=== PATIENT | male | born 1975 | race Caucasian/White ===

== ENCOUNTER 2022-10-14 10:00 | Emergency (ER) | payer OTHER, SELFPAY ==
--- NOTE | ~2022-10-14 | CT_ITS ---
EXAMINATION: CT FACIAL BONES WITH CONTRAST CLINICAL INFORMATION: Bilateral high swelling. Rule out orbital cellulitis COMPARISON: None available. TECHNIQUE: Axial images through the facial bones following 85 mL Omnipaque 350 IV contrast. Sagittal and coronal reconstructions on the technologist workstation. This CT examination was performed using dose optimization techniques as appropriate, variously including the following: *Automated exposure control *Adjustment of mA and/or kV according to patient size (this includes techniques or standardized protocols for targeted exams where dose is matched to indication/reason for exam; i.e. extremities or head) *Use of iterative reconstruction technique DLP: 739 mGy-cm FINDINGS: There is preseptal soft tissue swelling over both orbits. Post septal soft tissues are normal. Visualized intracranial structures are normal. There is a small polyp or cyst in the right maxillary sinus. Paranasal sinuses, mastoid air cells and middle ears are otherwise clear. The nasal septum is deviated to the left. The temporomandibular joints are normal. There is fatty replacement of both parotid glands. No enlarged lymph nodes. The oropharynx and larynx are normal. There is asymmetric appearance of the area of glottic folds with low-attenuation cystic appearing soft tissue seen in the right aryepiglottic fold. Appearance is questionable for possible polyp or cyst versus secretions. Clinical correlation recommended. There are degenerative changes of the spine. CT/CT facial bones w IV con IMPRESSION: Bilateral orbital preseptal soft tissue swelling. Post septal orbital soft tissues are normal. Asymmetric appearance with low-attenuation cystic appearing area in the right aryepiglottic fold. Possible polyp or cyst versus secretions should be considered. Clinical correlation recommended.
[2022-10-14 10:05] VITALS: BP 186/111; PULSE 79; RESP 20; O2SAT 98; BMI 57.3
--- NOTE | 2022-10-14 12:47 | ED.ALLEREA ---
HPI - Allergic Reaction General Chief complaint: Allergic Reaction Stated complaint: upper facial swelling Time Seen by Provider: 10/14/22 11:18 Source: patient Mode of arrival: ambulatory Limitations: no limitations History of Present Illness HPI narrative: 47-year-old male history of obesity ( morbid) presents to the ED today with upper facial and periorbital swelling bilaterally upon waking up 24 hours ago. Reports feeling at baseline the night prior. Yesterday he woke up with his eyes swollen shut, with upper facial swelling. Denies pain with eye movement or vision changes. Additionally states that there has been a slimy discharge coming from his penis & scrotum and reports concern that he touched this discharge prior to rubbing his eyes he wasnt sure if it was sweat or discharge. Reports penile pruritus. Denies headache, rash, hives, difficulty swallowing or breathing, fever, chills, nausea, vomiting, abdominal pain, dysuria, hematuria. Denies new detergents or lotions. No known insect bites. States that his only allergies to naproxen and Tylenol. MD complaint: facial swelling Related Data Previous Rx's Medication Instructions Recorded cephalexin 500 mg tablet 500 mg PO Q6H 10 days #40 tabs 10/14/22 doxycycline hyclate 100 mg capsule 100 mg PO BID 10 days #20 caps 10/14/22 metronidazole 500 mg tablet 500 mg PO BID 7 days #14 tabs 10/14/22 mupirocin 2 % topical ointment 1 appl topical BID #15 grams 10/14/22 prednisone 50 mg tablet 50 mg PO DAILY 5 days #5 tabs 10/14/22 Allergies Allergy/AdvReac Type Severity Reaction Status Date / Time naproxen [NAPROXEN] Allergy Unknown SHORTNESS Verified 10/14/22 10:08 OF BREATH acetaminophen [From TYLENOL] AdvReac Mild DIAPHORESIS Verified 10/14/22 10:08 Review of Systems Review of Systems: Constitutional : No Weight loss, No Fever, No Chills ENT/Mouth : No sore throat, No Rhinorrhea, + facial pain Eyes: No Eye Pain, No Swelling, No Redness Cardiovascular : No Chest Pain, No SOB, No Dyspnea on Exertion, No Orthopnea, No Edema, No Palpitations Respiratory : No Cough, No Sputum, No Wheezing Gastrointestinal : No Nausea, No Vomiting, No Diarrhea, No Constipation, No abdominal Pain, No Hematochezia, No Melena Genitourinary : No Dysuria, No Urinary Frequency, No Hematuria + penile discharge Musculoskeletal : No joint pain, No Myalgias, No Joint Swelling Skin : No Skin Lesions, + rash Neuro : No Weakness, No Numbness, No Dizziness, No Headache All other systems reviewed and are negative Yes all other systems are reviewed and are negative [facility] Past Medical History Attestation statement: The following information was validated with the patient. Source: old records reviewed and nursing notes reviewed Social History Social History Advance Directives: No Physical Exam ED Vital Signs: Vital Signs - 24 hr 10/14/22 10:05 10/14/22 13:11 Temperature 97.6 F Pulse Rate 79 69 Respiratory Rate 20 20 Blood Pressure 186/111 H 137/79 Pulse Oximetry 98 98 Oxygen Delivery Method Room Air Room Air BMI result Body Mass Index 57.3 Vital signs stable Appearance: Alert.? Oriented X3.? No acute distress.? Head: Normocephalic, atraumatic, no step-offs or deformities Eyes: Pupils equal, round and reactive to light.?Bilateral periorbital edema & errythema. No discharge. No conjunctival injection. No pain on EOM. Honey crusted lesions around glabella, L eyebrow. ENT: Pharynx normal.? Uvula midline. Controlling secretions. Speaking in full sentences. Neck: Normal inspection.? Neck supple.? CVS: Normal heart rate and rhythm.? Pulses normal.? Respiratory: No respiratory distress.? Breath sounds normal.? Abdomen: Soft and nontender.? Skin: Skin warm and dry.? Normal skin color.? Normal skin turgor.? Neuro: Oriented X 3.? No motor deficit.? No sensory deficit. CN 2-12 intact Sensative: errythema to b/l testicals no ttp, lumps or mases no penile dc. No gangrene or necrosis. Angela MAC at bedside Course Reevaluation(s) Reevaluation #1: CBC showing leukocytosis with eosinophilic predominance suggestive of allergic reaction >> steroid and Benadryl given CMP without any electrolyte abnormalities requiring intervention. Urinalysis without infection. NG and CT swabs pending. CT facial bones pending. Time: 13:53 Reevaluation #2: CT facial bones showing possible small cyst/ polyp in the maxillary sinus and bilateral orbital preseptal soft tissue swelling, otherwise unremarkable. Discussed case with my attending Time: 15:27 Reevaluation #3: On re-evaluation, patient's facial swelling has decreased. He can now open his eyes. No blurred vision, double vision or vision loss. Denies pain on EOM. Reports concern for STDs. Would like prophylactic treatment. Time: 15:57 Additional Reevaluation(s): Will prophylactically treat patient for STDs. Will discharge him home on prednisone, mupirocin ointment, doxycycline, Keflex and metronidazole. Educated patient on diagnosis and treatment plan, answered all question, patient verbalizes understanding. At this time patient will be discharged home, advised to return with new or worsening symptoms. Educated on worrisome signs and symptoms and when to return. At this time I feel comfortable discharge home. Medications Administered Discontinued Medications Generic Name Dose Route Start Last Admin Trade Name Freq PRN Reason Stop Dose Admin Dexamethasone Sodium Phosphate 10 mg 10/14/22 13:19 10/14/22 14:42 Dexamethasone Sod Phosphate 10 Mg/Ml Vial IVPUSH 10/14/22 13:20 10 mg ONCE ONE Administration Diphenhydramine HCl 50 mg 10/14/22 13:19 10/14/22 14:41 Diphenhydramine Hcl 50 Mg/Ml Vial IVPUSH 10/14/22 13:20 50 mg ONCE ONE Administration Iohexol 85 ml 10/14/22 14:19 10/14/22 14:19 Iohexol 350 Mg/Ml 100 Ml Infus..Btl IV 10/14/22 14:20 85 ml ONCE ONE Administration Medical Decision Making Medical Decision Making [facility] Narrative: 1250 47 yo male presenting with bilateral facial and periorbital swelling X2 hours PE-Pupils equal, round and reactive to light.?Bilateral periorbital edema & errythema. No discharge. No conjunctival injection. No pain on EOM. Honey crusted lesions around glabella, L eyebrow. errythema to b/l testicals no ttp, lumps or mases no penile dc. No gangrene or necrosis.RRR. Abdomen soft nontender. Will obtain CT to rule out periorbital vs orbital cellulitis ( unlikley EOMI pain free) vs sinus infection vs impetigo vs contact dermatitis. Unlikely STD vs gonococcal conjunctivitis > but will obtain PCR swabs to rule out. No concern for Jojo's syndrome, glaucoma, blowout fracture. No concern for anaphylaxis at this time. Scrotal erythema likely scrotal cellulitis unlikely for Neer's gangrene, orchitis, epididymitis, torsion. I did have a conversation with patient he states he is sexually active with new girlfriend, last had intercourse 2 weeks ago he does have some suspicion for STDs and would like prophylactic treatment. Patient agrees to prophylactic treatment for gonorrhea, chlamydia and trichomonas. 500mg IM ceftriaxone has been given here and scripts for doxycycline 100 mg po BID X 7 days and metronidazole 500 mg po BID X 7 days have been given to the patient. Educated on safe sex practices, full pannel STD testing and speaking to? partners on possible STD. Differential Diagnosis Differential Diagnoses: The differential diagnosis associated with the presentation includes Will obtain CT to rule out periorbital vs orbital cellulitis ( unlikley EOMI pain free) vs sinus infection vs impetigo vs contact dermatitis. Unlikely STD vs gonococcal conjunctivitis > but will obtain PCR swabs to rule out. No concern for Jojo's syndrome, glaucoma, blowout fracture. No concern for anaphylaxis at this time. Scrotal erythema likely scrotal cellulitis unlikely for Neer's gangrene, orchitis, epididymitis, torsion. Admission/Observation Consideration of admission/observation: Escalation of care including admission/observation considered Not indicated Lab Data MDM Lab Attestation statement: I reviewed the patient's lab results. As above 10/14/22 13:07 10/14/22 13:07 Labs: Lab Results 10/14/22 10/14/22 10/14/22 Range/Units 13:07 13:07 13:07 WBC 10.8 (4.8-10.8) X10*3/uL RBC 4.88 (4.60-5.80) X10*6/uL Hgb 15.0 (14.0-18.0) g/dl Hct 44.6 (42.0-52.0) % MCV 91.4 (80.0-98.0) fL MCH 30.7 (27.0-33.0) pg MCHC 33.6 (31.0-36.0) g/dl RDW 12.0 (11.0-16.0) % Plt Count 182 (160-400) X10*3/uL MPV 10.7 (9.4-12.4) fL Immature Gran % (Auto) 0.6 H (0.0-0.4) % Neut % (Auto) 66.0 (45-73) % Lymph % (Auto) 19.6 L (20-40) % Morgan % (Auto) 6.5 (2-11) % Eos % (Auto) 6.8 H (0-4) % Baso % (Auto) 0.5 (0-2) % Lymph # (Auto) 2.1 (1.2-4.9) X10*3/uL Morgan # (Auto) 0.7 (0.1-1.2) X10*3/uL Eos # (Auto) 0.7 H (0.0-0.4) X10*3/uL Baso # (Auto) 0.1 (0.0-0.2) X10*3/uL Abs Immat Gran (auto) 0.06 H (0.00-0.03) X10*3/uL Absolute Neuts (auto) 7.1 (2.0-8.3) x10*3/uL Absolute Nucleated RBC 0.000 (0.0-0.012) X10*3/uL Nucleated RBC % (auto) 0.0 (0.0-0.2) /100WBC Sodium 141 (135-145) mmol/L Potassium 4.3 (3.3-5.1) mmol/L Chloride 103 (96-108) mmol/L Carbon Dioxide 31 H (22-29) mmol/L Anion Gap 11 L (12-20) BUN 8 L (9-16) mg/dL Creatinine 0.98 (0.5-1.4) mg/dL Estim Creat Clear Calc 136.7 Estimated GFR > 60 Random Glucose 117 H (60-115) mg/dL Calcium 9.6 (8.4-10.2) mg/dL Total Bilirubin 0.6 (0.0-1.0) mg/dL AST 32 (5-37) U/L ALT 41 H (0-40) U/L Alkaline Phosphatase 66 (39-117) U/L Total Protein 6.9 (6.5-8.0) g/dL Albumin 4.0 (3.5-5.0) g/dL Urine Color Yellow Urine Appearance Clear Urine pH 6.0 (5.0-9.0) Ur Specific [place] 1.010 (1.005-1.025) Urine Protein Negative (Neg-Trace) mg/dL Urine Glucose (UA) Negative (Negative) mg/dL Urine Ketones Negative (Negative) mg/dL Urine Blood Negative (Negative) Urine Nitrite Negative (Negative) Ur Leukocyte Esterase Negative (Negative) Independent Interpretation I performed an independent interpretation of an: CT Scan Interpretation: CT facial bones without air fluid levels, agree with radiologist's interpretation. Radiology Impression Discussion of test interpretation with radiology: I have reviewed the radiologist's reading. Radiologist Impression: CT facial bones w IV con IMPRESSION: Bilateral orbital preseptal soft tissue swelling. Post septal orbital soft tissues are normal. Asymmetric appearance with low-attenuation cystic appearing area in the right aryepiglottic fold. Possible polyp or cyst versus secretions should be considered. Clinical correlation recommended. External Record Review External record reviewed: Inpatient record Prescription Management I considered prescription management with: Other (Steroid) Core Measures AMI core measures followed: Yes Measure exclusions: not indicated Discharge Plan Discharge Clinical Impression: Allergic reaction, Cellulitis, Impetigo, Cellulitis, scrotum Patient Disposition: Still a Patient Instructions: Impetigo (ED), Cellulitis (ED), General Allergic Reaction (ED), Warm Compress or Soak (ED) Additional Instructions: Take your medications as prescribed. If you were prescribed antibiotics today, it is important that you take your medication to their entirety, do not skip any doses, do not finish them early. Follow-up with your primary care provider this week. Return to the emergency department with new or worsening symptoms. Such as fevers, chills, chest pain, shortness of breath, nausea, vomiting, dizziness, headache, vision changes, lethargy In case of emergency call 911 You were treated here today with ceftriaxone, a medication that treats gonorrhea. I have sent to your pharmacy Metronidazole that covers trichomonas, and Doxycycline which covers for chlamydia. Please be reevaluated by a healthcare provider after completing your antibiotics. Do not stop them early, do not skip any doses. Until you are reevaluated by a health care provider please practice safe sex as disucussed. Please also have a conversation with your sexual partners.? I also advise you to obtain full panel STD testing to test for other STDs including HIV, Hepatitis B & C and syphilis with your PCP or a local clinic. Prescriptions: New doxycycline hyclate 100 mg capsule 100 mg PO BID 10 Days Qty: 20 0RF metronidazole 500 mg tablet 500 mg PO BID 7 Days Qty: 14 0RF prednisone 50 mg tablet 50 mg PO DAILY 5 Days Qty: 5 0RF cephalexin 500 mg tablet 500 mg PO Q6H 10 Days Qty: 40 0RF mupirocin 2 % ointment 1 appl topical BID Qty: 15 0RF Referrals: [facility] [Outside] Avelino Vasques, SIGN LANGUAGE TEACHER-BC [Primary Care Provider] - Stand Alone Forms: Work/School Release
[2022-10-14 13:11] VITALS: BP 137/79; PULSE 69; RESP 20; TEMP 36.4; O2SAT 98
[2022-10-14 13:18] LABS: MANUAL DIFF FLAG NO
[2022-10-14 13:21] LABS: Appearance Urine Clear; Color Urine Yellow; Glucose Urine UA Negative (Negative); Leukocyte Esterase Urine Negative (Negative); Nitrite Urine Negative (Negative); Urine Blood Negative (Negative); Urine Ketones Negative (Negative); Urine Protein Negative (Neg-Trace)
[2022-10-14 13:22] LABS: Basophils Absolute Auto 0.1 X10*3/uL (0.0-0.2); Basophils Percent Auto 0.5 % (0-2); Eosinophils Absolute Auto 0.7 X10*3/uL (0.0-0.4); Eosinophils Percent Auto 6.8 % (0-4); Hematocrit 44.6 % (42.0-52.0); Imm Gran Abs Auto 0.06 X10*3/uL (0.00-0.03); Imm Gran Pct Auto 0.6 % (0.0-0.4); Lymphocytes Absolute Auto 2.1 X10*3/uL (1.2-4.9); Lymphocytes Percent Auto 19.6 % (20-40); Mean Corpuscular HGB Conc 33.6 g/dl (31.0-36.0); Mean Corpuscular Hemoglobin 30.7 pg (27.0-33.0); Mean Corpuscular Volume 91.4 fL (80.0-98.0); Mean Platelet Volume 10.7 fL (9.4-12.4); Monocytes Absolute Auto 0.7 X10*3/uL (0.1-1.2); Monocytes Percent Auto 6.5 % (2-11); Neutrophils Absolute Auto 7.1 x10*3/uL (2.0-8.3); Platelet Count 182 X10*3/uL (160-400); Red Blood Count 4.88 X10*6/uL (4.60-5.80); White Blood Count 10.8 X10*3/uL (4.8-10.8)
[2022-10-14 13:51] LABS: Alanine Aminotransferase 41 U/L (0-40); Alkaline Phosphatase 66 U/L (39-117); Anion Gap 11 (12-20); Aspartate Amino Transferase 32 U/L (5-37); Bilirubin Total 0.6 mg/dL (0.0-1.0); Blood Urea Nitrogen 8 mg/dL (9-16); Calcium 9.6 mg/dL (8.4-10.2); Carbon Dioxide 31 mmol/L (22-29); Chloride 103 mmol/L (96-108); Creatinine Clr Calc Pharmacy 136.7; Estimated Glomerular Filt Rate > 60; Glucose Random 117 mg/dL (60-115); Potassium 4.3 mmol/L (3.3-5.1); Sodium 141 mmol/L (135-145); Total Protein 6.9 g/dL (6.5-8.0)
[2022-10-14] MEDS: iohexoL 350 MG/ML 100 ML INFUS..BTL 85 ML IV (14:19)
[2022-10-14] MEDS: diphenhydrAMINE HCL 50 MG/ML VIAL IVPUSH (14:41)
[2022-10-14] MEDS: dexAMETHasone sod phosphate 10 MG/ML VIAL IVPUSH (14:42)
[2022-10-14 16:06] LABS: Glucose, Whole Blood 110 mg/dL (60-115)
[2022-10-14 16:10] VITALS: BP 146/86; PULSE 73; RESP 18; TEMP 36.6; O2SAT 96
[2022-10-14 16:17] LABS: CT PCR NOT DETECTED (Not Detect.); NG PCR NOT DETECTED (Not Detect.)
[2022-10-14] MEDS: cefTRIAXone sodium 500 MG, Lidocaine HCl 1 % MPF 1 ML IM (16:24)
[2022-10-14] MEDS: Doxycycline Monohydrate 100 MG CAPSULE PO (16:25)
[2022-10-14] MEDS: metroNIDAZOLE 500 MG TABLET PO (16:25)
[2022-10-14] MEDS: Fluconazole 150 MG TABLET PO (16:26)
== END 2022-10-14 16:42 | disposition still patient (30) ==
PROVIDERS: Physician Assistant; Emergency Provider Emergency Medicine; PCP Nurse Practitioner Family
DX: N49.2 Inflammatory disorders of scrotum (principal); L50.0 Allergic urticaria; L01.00 Impetigo, unspecified; R51.9 Headache, unspecified; H02.843 Edema of right eye, unspecified eyelid; H02.846 Edema of left eye, unspecified eyelid; Z79.899 Other long term (current) drug therapy
CPT/HCPCS: 0353U; 36415; 70487; 80053; 81003; 82947; 85025; 96372; 96374; 96375; 99283; 99284; J0696; J1100; J1200; Q9967

== ENCOUNTER 2023-03-10 14:36 | Outpatient (AMB) | payer OTHER, SELFPAY ==
--- NOTE | 2023-03-10 14:54 | MHC.PC.OV ---
Vital Signs 03/10/23 14:55 Height 5 ft 7 in Weight 372 lb 2 oz BMI 58.3 BP 130/84 Blood Pressure Location Rt brachial Position Sitting Pulse 86 Pulse Source Pulse Oximeter Pulse Oximetry (%) 97 Oxygen Delivery Method Room Air Intake Visit Reasons: New patient-requesting physical Intake Note: Pt is here to re-est care and requesting a PE Allergies naproxen [NAPROXEN] Allergy (Unknown, Verified 03/10/23 14:57) SHORTNESS OF BREATH acetaminophen [From TYLENOL] Adverse Reaction (Mild, Verified 03/10/23 14:57) DIAPHORESIS Medication List - Last Reconciled 03/10/23 by DOM Naranjo No Known Home Meds Tobacco use date assessed: 03/10/23 Dental Screening Dental Screen Date: 03/10/23 Did you have a dental visit in the last 12 months?: Yes Did you have a dental problem in the last 6 months where you did not have access to dental care?: No Was dental information given to patient?: Patient has dentist HPI New patient-requesting physical HPI Details New pt is here for a PE. Will order labs. Pt had a colonoscopy many years ago and is due for a repeat. Will refer to GI. Due for PSA, will order. Denies dribbling with urination, weak stream, and frequent nocturia. Pt has some bulging of his upper mid abdomen as well as an umbilical hernia. Will order a CT to access further. [facility] Social History Housing: House Patient Tobacco Use Status: Never used Tobacco e-Cigarette/Vaping Use: Never Used Second Hand Smoke Exposure: No service: No Current occupational status: employed Current occupation: [employer] Current occupational exposures/hazards: No Cognitive needs: No Hearing needs: No Vision needs: No Questionnaire PHQ-9 Over the last 2 weeks, how often have you been bothered by any of the following problems? 1. Little interest or pleasure in doing things: not at all 2. Feeling down, depressed, or hopeless: not at all 3. Trouble falling or staying asleep, or sleeping too much: not at all 4. Feeling tired or having little energy: not at all 5. Poor appetite or overeating: not at all 6. Feeling bad about yourself - or that you are a failure or have let yourself or your family down: not at all 7. Trouble concentrating on things, such as reading the newspaper or watching television: not at all 8. Moving or speaking so slowly that other people could have noticed. Or the opposite - being so fidgety or restless that you have been moving around a lot more than usual: not at all 9. Thoughts that you would be better off or of hurting yourself in some way: not at all Total score: 0 Depression Screening Interpretation: Negative Depression Screening Done: Yes 23321 - PHQ-9 Billing: Yes Source: Developed by Drs. Reggie Jones, Aretha Ramsey, Dick Jhaveri and colleagues, with an educational tino from [employer]. Thrive Questionnaire Date Thrive assessed: 03/10/23 I am a: Patient What is your living situation today?: I have a steady place to live Within the past 12 months, did the food you bought not last and you didn't have the money to get more?: Never true Within the past 12 months, did you worry whether your food would run out before you got money to buy more?: Never true Do you have trouble paying for medicines?: No Do you have trouble getting transportation to medical appointments?: No Do you have trouble paying your heating and electricity bill?: No Do you have trouble taking care of your child, family member or friend?: No Do you have trouble with day-to-day activities such as bathing, preparing meals, shopping, managing finances, etc.?: No Are you currently unemployed and looking for a job?: No Are you interested in more education?: No Currently or been in a relationship where the following occur: no concerns reported THRIVE Score: 0 AUDIT C Alcohol Use Questionnaire (AUDIT-C) 1. How often do you have a drink containing alcohol?: 2-3 times a week 2. How many drinks containing alcohol do you have on a typical day when you are drinking?: 3 or 4 3. How often do you have six or more drinks on one occasion?: Weekly Total Score: 7 KIMI-7 AMB Questionnaire KIMI-7 Date KIMI - 7 assessed: 03/10/23 Feeling nervous, anxious, or on edge: 0 = Not at all Not being able to stop or control worryin = Not at all Worrying too much about different things: 0 = Not at all Trouble relaxin = Not at all Being so restless that it is hard to sit still: 0 = Not at all Becoming easily annoyed or irritable: 0 = Not at all Feeling afraid as if something awful might happen: 0 = Not at all Total KIMI-7 score (0-4 normal; 5-9 mild; 10-14 moderate; 15-21 severe): 0 Source: Developed by Drs. Reggie Jones, Aretha Ramsey, Dick Jhaveri and colleagues, with an educational tino from [employer]. Review of Systems Const Denies chills and Denies fever(s) Eyes Denies blurry vision ENT Denies vertigo, Denies dizziness and Denies sore throat Card Denies chest pain at rest, Denies chest pain with activity, Denies diaphoresis, Denies dyspnea and Denies dyspnea on exertion Resp Denies cough, Denies dyspnea, Denies dyspnea on exertion and Denies wheezing GI Denies abdominal pain, Denies melena, Denies hematochezia, Denies constipation, Denies diarrhea and Denies loose stools Denies hematuria Musc Denies numbness and Denies tingling Skin/Breast Denies lesions Neuro Denies vertigo, Denies dizziness, Denies numbness and Denies tingling Psych Denies anxiety, Denies depression, Denies homicidal ideation, Denies suicidal ideation and Denies other (substance abuse) Aller/Immun Denies wheezing Physical exam (Primary Care) Vital Signs: Last Vital Signs Pulse 86 03/10/23 14:55 BP 130/84 03/10/23 14:55 Pulse Ox 97 03/10/23 14:55 Oxygen Delivery Method Room Air 03/10/23 14:55 BMI result Body Mass Index 58.3 Tobacco/Smoking Status: Tobacco use Status Tobacco use date assessed 03/10/23 03/10/23 15:01 Patient Tobacco Use Status Never used Tobacco 03/10/23 15:01 e-Cigarette/Vaping Use Never Used 03/10/23 15:01 PHQ-9: PHQ-9 Score PHQ-9: Total score 0 03/10/23 15:06 Depression Screening Interpretation: Negative Thrive Assessment: Date of Thrive Assessment Date Thrive assessed 03/10/23 03/10/23 15:05 Currently or been in a relationship where the following occur: no concerns reported Const General: cooperative Nutritional Appearance: obese morbidly obese Orientation/consciousness: patient oriented x3 HENMT Head: Yes normal to inspection, Yes normocephalic and Yes atraumatic Ears: TM's normal bilaterally Eyes General: appearance normal, both eyes and all related structures Alignment and Position: alignment normal and position normal Neck Neck: Yes normal visual inspection and Yes no lymphadenopathy Thyroid: Thyroid normal Resp Effort & Inspection: normal respiratory effort Auscultation: clear to auscultation bilaterally Cardio Rate: regular rate Rhythm: regular rhythm Heart sounds: S1 normal heart sound present, S2 normal heart sound present and no murmurs GI Other: umbilical hernia, upper mid abdomen with large distended region, ? hernia Palpation (GI): Soft to palpation and nontender Auscultation: normal bowel sounds Male General Exam: Yes normal external exam Penis: normal penis Scrotum: scrotum normal, testes descended bilaterally and no inguinal hernias Testes: no testicular mass Skin Rashes: no rashes Neuro General: patient oriented x3, moves all extremities, no focal motor deficits and deep tendon reflexes 2+ bilaterally Romberg Test: Negative Extrem Right lower extremity: edema Details: pitting and 1+ Left lower extremity: edema Details: pitting and 1+ Psych Appearance: grossly normal Mental Status: mental status grossly normal Speech and movement: Normal speech and movement present Affect: normal affect Attitude: cooperative Thought process: Normal thought process present Thought content: Normal thought content present Insight: Good insight present (Psych) Judgement: Good judgement present (Psych) Assessment and Plan Assessment & Plan (1) Physical exam: Code(s): Z00.00 - Encounter for general adult medical examination without abnormal findings Plan: Labs ordered (2) Screening for prostate cancer: Code(s): Z12.5 - Encounter for screening for malignant neoplasm of prostate Plan: PSA ordered (3) Abdominal hernia: Code(s): K46.9 - Unspecified abdominal hernia without obstruction or gangrene Plan: CT ordered Plan The patient agreed to the use of a medical affairs specialist for this encounter. Scribed for DOM Lugo by gautam Lawrence scribe, on 03/10/2023 at 15:05 EST. Orders: Orders Comprehensive [place]. Panel Fast Today Z00.00 - Encounter for general adult medical examination without abnormal findings UA CC w/rflx Micro + Cult Today Z00.00 - Encounter for general adult medical examination without abnormal findings Prostate Specific Antigen Scr Today Z12.5 - Encounter for screening for malignant neoplasm of prostate Complete Blood Count Auto Diff Today Z00.00 - Encounter for general adult medical examination without abnormal findings TSH reflex Free T4 Today Z00.00 - Encounter for general adult medical examination without abnormal findings Lipid Panel Today Z00.00 - Encounter for general adult medical examination without abnormal findings CT abdomen pelvis w IV con Today K46.9 - Unspecified abdominal hernia without obstruction or gangrene Referrals Gastroenterology Referral Z12.11 - Encounter for screening for malignant neoplasm of colon Coding Level of Care Code New Pt Prev Care 40-64y([id number]) Diagnoses Physical exam Z00.00 Screening for prostate cancer Z12.5 Abdominal hernia K46.9
[2023-03-10 14:55] VITALS: BP 130/84; PULSE 86; O2SAT 97; BMI 58.3
== END 2023-03-10 15:31 | disposition home or self-care (01) ==
PROVIDERS: PCP Nurse Practitioner Family; Visit Provider Nurse Practitioner Family
DX: Z00.00 Encounter for general adult medical examination without abnormal findings (principal); Z12.5 Encounter for screening for malignant neoplasm of prostate; K46.9 Unspecified abdominal hernia without obstruction or gangrene
CPT/HCPCS: 99386

== ENCOUNTER 2023-04-08 07:48 | Outpatient (REF) | payer OTHER, SELFPAY ==
[2023-04-08 10:17] LABS: MANUAL DIFF FLAG NO
[2023-04-08 10:23] LABS: Appearance Urine Clear; Color Urine Yellow; Glucose Urine UA Negative (Negative); Leukocyte Esterase Urine Negative (Negative); Nitrite Urine Negative (Negative); Urine Blood Negative (Negative); Urine Ketones Negative (Negative); Urine Protein Negative (Neg-Trace)
[2023-04-08 10:32] LABS: Basophils Percent Auto 0.5 % (0-2); Eosinophils Absolute Auto 0.5 X10*3/uL (0.0-0.4); Eosinophils Percent Auto 6.5 % (0-4); Hematocrit 44.8 % (42.0-52.0); Imm Gran Abs Auto 0.04 X10*3/uL (0.00-0.03); Imm Gran Pct Auto 0.5 % (0.0-0.4); Lymphocytes Absolute Auto 2.6 X10*3/uL (1.2-4.9); Lymphocytes Percent Auto 33.5 % (20-40); Mean Corpuscular HGB Conc 33.5 g/dl (31.0-36.0); Mean Corpuscular Hemoglobin 29.5 pg (27.0-33.0); Mean Corpuscular Volume 88.2 fL (80.0-98.0); Monocytes Absolute Auto 0.6 X10*3/uL (0.1-1.2); Neutrophils Absolute Auto 4.1 x10*3/uL (2.0-8.3); Platelet Count 210 X10*3/uL (160-400); Red Blood Count 5.08 X10*6/uL (4.60-5.80); Red Cell Distribution Width 12.4 % (11.0-16.0); White Blood Count 7.8 X10*3/uL (4.8-10.8)
[2023-04-08 11:36] LABS: Prostate Specific Antigen Scr 0.36 ng/mL (<0.05-4.0)
[2023-04-08 11:40] LABS: TSH reflex Free T4 1.34 uIU/mL (0.32-4.0)
[2023-04-08 11:42] LABS: Anion Gap 10 (12-20)
[2023-04-08 11:47] LABS: Alanine Aminotransferase 43 U/L (0-40); Albumin Level 3.9 g/dL (3.5-5.0); Alkaline Phosphatase 73 U/L (39-117); Aspartate Amino Transferase 25 U/L (5-37); Bilirubin Total 0.8 mg/dL (0.0-1.0); Blood Urea Nitrogen 10 mg/dL (9-16); Calcium 9.4 mg/dL (8.4-10.2); Carbon Dioxide 30 mmol/L (22-29); Chloride 101 mmol/L (96-108); Cholesterol 191 mg/dL (<200); Estimated Glomerular Filt Rate > 60; Glucose Fasting 137 mg/dL (60-99); HDL Cholesterol 35 mg/dL (>40); LDL Cholesterol Calculated 129 mg/dL (<100); Potassium 4.4 mmol/L (3.3-5.1); Sodium 137 mmol/L (135-145); Total Protein 6.7 g/dL (6.5-8.0); Triglycerides 139 mg/dL (<150)
== END 2023-04-08 07:49 | disposition home or self-care (01) ==
LOC: HO.HMGCLDS 07:48
PROVIDERS: PCP Nurse Practitioner Family; Visit Provider Nurse Practitioner Family
DX: Z00.00 Encounter for general adult medical examination without abnormal findings (principal); Z12.5 Encounter for screening for malignant neoplasm of prostate; Z13.6 Encounter for screening for cardiovascular disorders
CPT/HCPCS: 36415; 80053; 80061; 81003; 84153; 84443; 85025

== ENCOUNTER 2023-04-17 13:55 | Outpatient (REF) | payer OTHER, SELFPAY ==
--- NOTE | ~2023-04-17 | CT_ITS ---
EXAMINATION: CT ABDOMEN AND PELVIS WITH CONTRAST CLINICAL INFORMATION: Unspecified abdominal hernia without obstruction or gangrene. COMPARISON: None available. TECHNIQUE: Multidetector volumetric images were obtained from the superior aspect of the liver through the pubic symphysis following administration 85 mL of Omnipaque 350 intravenous contrast. Sagittal and coronal reformatted images were obtained on the technologist's workstation. Oral contrast: No This CT examination was performed using dose optimization techniques as appropriate, variously including the following: *Automated exposure control *Adjustment of mA and/or kV according to patient size (this includes techniques or standardized protocols for targeted exams where dose is matched to indication/reason for exam; i.e. extremities or head) *Use of iterative reconstruction technique DLP: 1137 mGy-cm FINDINGS: LUNG BASES: The visualized lung bases are unremarkable. LIVER, GALLBLADDER, AND BILIARY TREE: The liver is normal in size and shape but demonstrates decreased attenuation consistent with hepatic steatosis. Some focal fatty sparing is seen adjacent to the gallbladder. No concerning solid focal hepatic lesion or biliary ductal dilatation is present. The gallbladder is unremarkable with no evidence of radiopaque gallstones, gallbladder wall thickening, or obvious pericholecystic inflammatory changes. PANCREAS: Unremarkable. SPLEEN: Spleen is enlarged at 15.6 cm in greatest transverse dimension. ADRENAL GLANDS: Unremarkable. KIDNEYS AND URETERS: The kidneys are normal in size, shape, and attenuation. No hydronephrosis, hydroureter, or calculi seen. There is a 1.7 cm mass of the lower pole of the right kidney that measures between 21 and 33 Hounsfield units, although this probably represents a Bosniak class II hemorrhagic benign cyst, confirmation with ultrasound is needed. No other renal masses are seen. BLADDER: Unremarkable. GASTROINTESTINAL TRACT: The small and large bowel are unremarkable aside from the presence of some colonic diverticula without diverticulitis. The appendix is unremarkable. ABDOMINAL WALL: A small periumbilical hernia is seen containing only fat with the fascial defect measuring 1.7 x 1.7 cm. There is mild diastases of the rectus muscles above the umbilicus. LYMPH NODES: No retroperitoneal lymphadenopathy. Some minimal teri changes are seen in the mesentery of no clinical significance. VASCULAR: Unremarkable. PELVIC VISCERA: The prostate and seminal vesicles are unremarkable. OSSEOUS STRUCTURES: Unremarkable. CT/CT abdomen pelvis w IV con IMPRESSION: 1. Small periumbilical hernia containing only fat with associated diastases of the rectus muscles in the epigastrium. 2. Incidental note made of hepatic steatosis, splenomegaly and colonic diverticulosis. 3. A 1.7 cm right lower pole renal mass probably a Bosniak class II hemorrhagic cyst. Confirmation with ultrasound is needed. Fleischner guidelines were followed.
[2023-04-17] MEDS: iohexoL 350 MG/ML 100 ML INFUS..BTL 85 ML IV (15:03)
== END 2023-04-17 13:56 | disposition home or self-care (01) ==
LOC: HO.CT 13:55
PROVIDERS: PCP Nurse Practitioner Family; Visit Provider Nurse Practitioner Family
DX: K46.9 Unspecified abdominal hernia without obstruction or gangrene (principal)
CPT/HCPCS: 74177; Q9967

== ENCOUNTER 2023-04-30 13:57 | Outpatient (REF) | payer OTHER, SELFPAY ==
--- NOTE | ~2023-04-30 | US_ITS ---
EXAMINATION: US RETROPERITONEAL LIMITED (RIGHT RENAL ONLY) CLINICAL INFORMATION: Right renal mass seen on CT. COMPARISON: CT abdomen and pelvis 04/17/2023. TECHNIQUE: Real-time imaging of the right kidney. Technically severely limited study secondary to body habitus. FINDINGS: RIGHT KIDNEY: 9.8 x 6.9 x 6.8 cm (SAG x AP x TRV). The kidney is normal in size, contour, and echogenicity. Renal cortical thickness is normal. No renal calculi or hydronephrosis. At the lower pole, a 1.7 cm anechoic cyst is seen. Upon correlation with the CT examination of 04/17/2023 (4:84 and 6:310), this shows a fine central septation. This mildly complex (Bosniak 2) cyst shows good increase in through sound transmission and no associated color Doppler flow. The appearance is probably benign, and no imaging follow-up is recommended. US/US renal RT IMPRESSION: A probable benign mildly complex right renal lower pole cyst is seen, which requires no imaging follow-up. No solid lesion is appreciated with ultrasound. There is no calculus or hydronephrosis is noted.
== END 2023-04-30 13:58 | disposition home or self-care (01) ==
LOC: HO.HMGCX 13:57
PROVIDERS: PCP Nurse Practitioner Family; Visit Provider Nurse Practitioner Family
DX: N28.89 Other specified disorders of kidney and ureter (principal)
CPT/HCPCS: 76775

== ENCOUNTER 2024-02-18 12:15 | Outpatient (AMB) | payer OTHER, SELFPAY ==
--- NOTE | 2024-02-18 13:09 | AM.OFFWIN_ITS ---
Intake Vital Signs 02/18/24 13:10 Weight 391 lb BP 130/90 H Blood Pressure Location Lt brachial Position Sitting Pulse 87 Pulse Source Pulse Oximeter Temp 98.5 F Temp Source Oral Pulse Oximetry (%) 95 Oxygen Delivery Method Room Air Intake Visit Reasons: EP Productive cough, sweats, aches Intake Note: Patient here chills, cough and body aches that started last weekend. Patient Tobacco Use Status: Never used Tobacco Allergies naproxen [NAPROXEN] Allergy (Unknown, Verified 02/18/24 13:11) SHORTNESS OF BREATH acetaminophen [From TYLENOL] Adverse Reaction (Mild, Verified 02/18/24 13:11) DIAPHORESIS Do you need a note to return to daycare/school/sports/work: Yes HPI HPI Comments History of Present Illness Details History - The patient is a 49-year-old male pres enting with shortness of breath and cough x 4 days. - Initial symptoms included dizziness, e xcessive sweating, and chest discomfort. - Wheezing and shortness of breath have been reported, but there is no known history of asthma or COPD. - The cough is productive, with green sp utum noted. - The patient has self-administered Suda fed without improvement, and symptoms have worsened. - Prednisone and tesselon pearles have b een used previously with noted beneficial effects in similar instances. Physical Exam General: Cooperative, appears unwell, uncomfortable, and in mild distress Orientation/consciousness: Patient oriented x3 Limitations: No limitations Head: Normal to inspection Ears: Hearing grossly normal bilaterally, external ears normal and TM's erythema and effusions bilaterally Nose: Normal external nose present, Normal nares present and No nasal discharge present Face and sinus: Normal facial exam and Sinuses tender to palpation Mouth: Normal oral and palatal mucosa present and moist mucous membranes Throat: Yes tonsils normal, Yes uvula midline. Posterior oropharynx erythema Eyes: Appearance normal, both eyes and all related structures Neck: Normal visual inspection Respiratory: Clear to auscultation bilaterally except for right lower lobe which had slight vesicular sounds. Normal respiratory effort, able to speak in complet e sentences, Actively coughing, no respiratory distress, not tachypneic, no tripod positioning and no use of accessory muscles Cardiovascular: Regular rate and rhythm. Normal S1 and S2 Skin: No rashes or lesions noted Neuro: Patient oriented x3 Extremities: Normal to inspection and Yes no clubbing, cyanosis or edema [facility] Social History Housing: House Patient Tobacco Use Status: Never used Tobacco e-Cigarette/Vaping Use: Never Used Second Hand Smoke Exposure: No service: No Current occupational status: employed Current occupation: [employer] Current occupational exposures/hazards: No Cognitive needs: No Hearing needs: No Vision needs: No Review of Systems Const All systems reviewed & are unremarkable except as noted in HPI and below Physical Exam Vital Signs: Last Vital Signs Temp 98.5 F 02/18/24 13:10 Pulse 87 02/18/24 13:10 BP 130/90 H 02/18/24 13:10 Pulse Ox 95 02/18/24 13:10 Oxygen Delivery Method Room Air 02/18/24 13:10 Assessment & Plan Assessment & Plan (1) Lower respiratory infection (e.g., bronchitis, pneumonia, pneumonitis, pulmonitis): Code(s): J22 - Unspecified acute lower respiratory infection Plan: The plan involves obtaining a chest x-ray to assess for potential community- acquired pneumonia, after which treatment with Zpak will be initiated if confirmed to treat for CAP. Will send Augmentin for OM. Prednisone is prescribed to assist with respiratory symptoms. Tessalon Perles is recommended for nighttime use to suppress the cough and facilitate sleep. Daytime decongestant use should continue to manage symptoms. Diagnostic tests for Influenza, COVID- 19, and RSV were conducted to exclude viral etiologies. Follow-up will include communications regarding the results of these tests and adjustments to the management plan as needed. Patient was informed and verbally consented to the use of an ambient scribe for clinic note documentation during this visit (2) Otitis media: Code(s): H66.90 - Otitis media, unspecified, unspecified ear Qualifiers: Otitis media type: unspecified Chronicity: acute Qualified Code(s): H66.90 - Otitis media, unspecified, unspecified ear Plan: as above, augmentin sent to cover for possible CAP as well. Orders: Orders XR chest 2V Today R05.9 - Cough, unspecified SARS-CoV2/FLU/RSV Today J22 - Unspecified acute lower respiratory infection Medications: New prednisone 40 mg (2 x 20 mg) PO DAILY 10 tabs 0RF benzonatate 200 mg PO TID PRN 14 caps 0RF cough amoxicillin-pot clavulanate 875-125 mg 1 tab PO Q12H 14 tabs 0RF Coding Level of Care Code Est Pt Level 4 (39626) Diagnoses Lower respiratory infection (e.g., bronchitis, pneumonia, pneumonitis, pulmonitis) J22 Acute otitis media, unspecified otitis media type H66.90 Otitis media type: unspecified Chronicity: acute
[2024-02-18 13:10] VITALS: BP 130/90; PULSE 87; TEMP 36.9; O2SAT 95
== END 2024-02-18 15:16 | disposition home or self-care (01) ==
PROVIDERS: PCP Nurse Practitioner Family; Visit Provider Physician Assistant
DX: J22 Unspecified acute lower respiratory infection (principal); H66.90 Otitis media, unspecified, unspecified ear

== ENCOUNTER 2024-02-18 12:15 | Outpatient (REF) | payer OTHER, SELFPAY | END 2024-02-18 12:16 | disposition home or self-care (01) | LOC: HO.LAB 12:15 | PROVIDERS: PCP Nurse Practitioner Family | DX: Z13.89 Encounter for screening for other disorder (principal) ==

== ENCOUNTER 2024-02-18 13:47 | Outpatient (REF) | payer OTHER, SELFPAY ==
--- NOTE | ~2024-02-18 | XR_ITS ---
EXAMINATION: XR CHEST CLINICAL INFORMATION: R05.9 - Cough, unspecified COMPARISON: X-ray dated July 09, 2018 TECHNIQUE: 2 views of the chest were obtained. FINDINGS: No consolidation, pleural effusion or pneumothorax. Cardiomediastinal silhouette is normal. Osseous structures are intact. XR/XR chest 2V IMPRESSION: No acute airspace disease. Electronically signed by: Pranay Sandhu MD 02/18/2024 03:32 PM [facility]
[2024-02-18 17:13] LABS: Influenza A PCR NEGATIVE (Negative); Influenza B PCR NEGATIVE (Negative); Resp Syncy Virus RNA Qual PCR NEGATIVE (Negative); SARS COV2 PCR INHOUSE NEGATIVE (Negative)
== END 2024-02-18 13:48 | disposition home or self-care (01) ==
LOC: HO.HMGCX 13:47
PROVIDERS: PCP Nurse Practitioner Family; Visit Provider Physician Assistant
DX: R05.9 Cough, unspecified (principal); J22 Unspecified acute lower respiratory infection
CPT/HCPCS: 0241U; 71046

== ENCOUNTER → 2024-02-18 13:51 | Outpatient (BNV) | payer OTHER, SELFPAY | PROVIDERS: PCP Nurse Practitioner Family; Visit Provider Radiology Diagnostic Radiology | DX: R05.9 Cough, unspecified (principal) | CPT/HCPCS: 71046 ==

== ENCOUNTER 2024-02-24 10:40 | Outpatient (AMB) | payer OTHER, SELFPAY ==
[2024-02-24 11:36] VITALS: BP 110/66; PULSE 68; O2SAT 98; BMI 54.5
--- NOTE | 2024-02-24 11:36 | MHC.OFFWIV ---
Intake Vital Signs 02/24/24 11:36 Height 5 ft 7 in Weight 348 lb BMI 54.5 BP 110/66 Blood Pressure Location Rt brachial Position Sitting Pulse 68 Pulse Source Pulse Oximeter Pulse Oximetry (%) 98 Oxygen Delivery Method Room Air Intake Visit Reasons: EP-sinus pressure & discharge, cough Intake Note: Pt is here today for a walk in visit. Pt c/o cough, a lot of mucus green/yellow, sinus pain and pressure. Pt states that he was seen last week and he was prescribed Prednisone and antibiotic and he finished Prednisone 2 days ago and he has one pill left for Amoxicillin. Patient Tobacco Use Status: Never used Tobacco Allergies naproxen [NAPROXEN] Allergy (Unknown, Verified 02/24/24 11:41) SHORTNESS OF BREATH acetaminophen [From TYLENOL] Adverse Reaction (Mild, Verified 02/24/24 11:41) DIAPHORESIS HPI HPI Comments History of Present Illness Details History - The patient is a 49-year-old male presenting with persistent cough, sinus pain, and pressure. - Initially evaluated on February 17 for a lower respiratory infection with associated acute otitis media; treated with Augmentin, a prednisone burst, and Tessalon Perles. Tests for flu, COVID, and RSV were negative. Chest X-ray denied acute airspace disease. - Today, there is continued production of green and yellow mucus with persistent sinus pain and pressure, wheeze at night. - Previously prescribed medications, including steroids and Tessalon Perles, are completed; the cough persists with nocturnal wheezing and significant sinus discomfort. - Despite a 40% improvement, the patient's symptoms remain problematic and untreated with other supportive measures like decongestants. Physical Exam General: Cooperative, healthy appearing, comfortable and no acute distress Orientation/consciousness: Patient oriented x3 Limitations: No limitations Head: Normal to inspection Ears: Hearing grossly normal bilaterally, external ears normal and TM's normal bilaterally, fluid present in both ears Nose: Normal external nose present, Normal nares present and No nasal discharge present Face and sinus: Normal facial exam and Sinuses tender ethmoid bilat Mouth: Normal oral and palatal mucosa present and moist mucous membranes Throat: Yes tonsils normal, Yes uvula midline. Posterior oropharynx erythema Eyes: Appearance normal, both eyes and all related structures, patient reports eye pain Neck: Normal visual inspection Respiratory: slight exp wheeze to auscultation bilaterally. Normal respiratory effort, able to speak in complete sentences, Actively coughing, no respiratory distress, not tachypneic, no tripod positioning and no use of accessory muscles, Cardiovascular: Regular rate and rhythm. Normal S1 and S2 Skin: No rashes or lesions noted Neuro: Patient oriented x3 Extremities: Normal to inspection and Yes no clubbing, cyanosis or edema PFSH Social History Housing: House Patient Tobacco Use Status: Never used Tobacco e-Cigarette/Vaping Use: Never Used Second Hand Smoke Exposure: No service: No Current occupational status: employed Current occupation: [employer] Current occupational exposures/hazards: No Cognitive needs: No Hearing needs: No Vision needs: No Review of Systems Const All systems reviewed & are unremarkable except as noted in HPI and below Physical Exam Vital Signs: Last Vital Signs Pulse 68 02/24/24 11:36 BP 110/66 02/24/24 11:36 Pulse Ox 98 02/24/24 11:36 Oxygen Delivery Method Room Air 02/24/24 11:36 BMI result Body Mass Index 54.5 Assessment & Plan Assessment & Plan (1) Lower respiratory infection (e.g., bronchitis, pneumonia, pneumonitis, pulmonitis): Code(s): J22 - Unspecified acute lower respiratory infection Plan: I have initiated a prednisone taper and prescribed a Z-Anmol to address the lingering respiratory symptoms, potentially covering atypical pneumonia. A nasal rinse regimen along with Flonase is recommended to mitigate the sinusitis-related discomfort and congestion. I also prescribed a renewal of Tessalon Perles at their maximum strength for ongoing cough suppression. The various options discussed are intended to alleviate the persisting symptoms holistically, by tackling both viral and bacterial contributions to the current illness presentation. Patient was informed and verbally consented to the use of an ambient scribe for clinic note documentation during this visit Medications: New azithromycin For 250 mg dose pack: take 500 mg today (day 1), then 250 mg for 4 days (days 2-5) PO 6 tabs 0RF benzonatate 200 mg PO TID PRN 10 caps 0RF cough methylprednisolone PO PER PKG DIR for 6 days 21 ea 0RF Coding Level of Care Code Est Pt Level 4 (81060) Diagnoses Lower respiratory infection (e.g., bronchitis, pneumonia, pneumonitis, pulmonitis) J22
== END 2024-02-24 12:17 | disposition home or self-care (01) ==
PROVIDERS: PCP Nurse Practitioner Family; Visit Provider Physician Assistant
DX: J22 Unspecified acute lower respiratory infection (principal)

== ENCOUNTER 2024-05-03 11:27 | Outpatient (AMB) | payer OTHER, SELFPAY ==
--- NOTE | 2024-05-03 11:38 | MHC.OFFWIV ---
Intake Vital Signs 05/03/24 11:39 Weight 348 lb BP 138/80 Blood Pressure Location Lt brachial Position Sitting Pulse 73 Pulse Source Pulse Oximeter Pulse Oximetry (%) 97 Oxygen Delivery Method Room Air Intake Visit Reasons: EP Dizzy, lt eye pain pressure, pupil difference? Patient Tobacco Use Status: Never used Tobacco Allergies naproxen [NAPROXEN] Allergy (Unknown, Verified 05/03/24 11:39) SHORTNESS OF BREATH acetaminophen [From TYLENOL] Adverse Reaction (Mild, Verified 05/03/24 11:39) DIAPHORESIS Do you need a note to return to daycare/school/sports/work: No HPI HPI Comments History of Present Illness Details History of Present Illness - The patient is a 49-year-old male presenting with sudden onset dizziness and lightheadedness. - Dizziness and lightheadedness began suddenly after a high-stress phone conversation, while the patient was still in his vehicle. - Symptoms included lethargy and gait instability, likened to feeling inebriated. - He states his coworkers told him his pupils were uneven, then he also noticed inner left eyelid swelling became apparent concomitantly. - The patient denied nausea, vomiting, sweating, chest pain, and any significant headache at the time, except a slight headache observed later. - Dizziness worsens upon rightward gaze. - 4 days ago he underwent a root canal, currently on Amoxicillin as a prophylactic measure. - Childhood history notable for significant facial swelling 2/2 abscess post-dental treatment requiring emergency care and drainage. Physical Exam General: Cooperative, healthy appearing, comfortable, no acute distress and well developed Orientation: Patient oriented x3 Limitations: No limitations Head: Normal to inspection Ears: Hearing grossly normal bilaterally, TMs normal bilaterally Nose: Normal External nose present Face and sinus: Normal facial exam, no tenderness in sinuses Mouth: moist mucosa, no erythema on gums, left lower tooth #23 has evidence of recent dental work with slight erythema, no edema or drainage noted Eyes: left eye slight edema inner upper eyelid towards nasal bridge, no erythema, PERRLA, Neck: Normal visual inspection and Yes full ROM Respiratory: Normal respiratory effort and able to speak in complete sentences. Skin: No rashes or lesions noted Neuro: Patient oriented x3, gait normal, cranial nerves 2-12 intact Extremities: Normal to inspection [facility] Social History Housing: House Patient Tobacco Use Status: Never used Tobacco e-Cigarette/Vaping Use: Never Used Second Hand Smoke Exposure: No service: No Current occupational status: employed Current occupation: [employer] Current occupational exposures/hazards: No Cognitive needs: No Hearing needs: No Vision needs: No Review of Systems Const All systems reviewed & are unremarkable except as noted in HPI and below Physical Exam Vital Signs: Last Vital Signs Pulse 73 05/03/24 11:39 BP 138/80 05/03/24 11:39 Pulse Ox 97 05/03/24 11:39 Oxygen Delivery Method Room Air 05/03/24 11:39 Assessment & Plan Assessment & Plan (1) Dizziness: Code(s): R42 - Dizziness and giddiness Plan: Given the symptoms of dizziness, anisocoria (though PEERLA upon my exam), and periocular swelling following the recent dental work, the patient requires an evaluation in an emergency setting. A CT scan is likely required to rule out infection/abscess or other serious conditions involving orbital or sinus regions. Meanwhile, continuing Amoxicillin is advisable to manage bacterial aspects of dental work. Immediate attention to these symptoms is crucial due to potential complications. No significant neurological impairments are observed, but emergency assessment will determine immediate interventions. Further management follows acute symptom stabilization. Called [facility] ED with expect. Patient was informed and verbally consented to the use of an ambient scribe for clinic note documentation during this visit. Coding Level of Care Code Est Pt Level 5 (63496) Diagnoses Dizziness R42
[2024-05-03 11:39] VITALS: BP 138/80; PULSE 73; O2SAT 97
== END 2024-05-03 12:49 | disposition home or self-care (01) ==
PROVIDERS: PCP Nurse Practitioner Family; Visit Provider Physician Assistant
DX: R42 Dizziness and giddiness (principal)

== ENCOUNTER 2024-05-03 12:27 | Emergency (ER) | payer OTHER, SELFPAY ==
[2024-05-03 12:40] VITALS: BP 137/79; PULSE 65; RESP 18; TEMP 36.6; O2SAT 96; BMI 54.0
--- NOTE | 2024-05-03 12:44 | ED.GENADULT ---
HPI - General Adult General Chief complaint: Dizziness Stated complaint: High Stress, Dizziness, L Eye Swelling Related Data Previous Rx's ?Medication ?Instructions ?Recorded blood sugar diagnostic (FreeStyle #200 ea 04/10/23 Lite Strips) blood-glucose meter (FreeStyle #1 ea 04/10/23 Lite Meter kit) lancets 28 gauge (FreeStyle #200 ea 04/10/23 Lancets) amoxicillin 875 mg-potassium 1 tab PO Q12H #14 tabs 02/18/24 clavulanate 125 mg tablet Allergies Allergy/AdvReac Type Severity Reaction Status Date / Time acetaminophen [From TYLENOL] AdvReac Mild DIAPHORESIS Verified 05/03/24 12:44 [facility] Social History Social History Housing: House Patient Tobacco Use Status: Never used Tobacco e-Cigarette/Vaping Use: Never Used Second Hand Smoke Exposure: No Advance Directives: No Advance Directives Information Provided: No service: No Current occupational status: employed Current occupation: [employer] Current occupational exposures/hazards: No Cognitive needs: No Hearing needs: No Vision needs: No Physical Exam ED Vital Signs: Vital Signs - 24 hr 05/03/24 12:40 Temperature 97.9 F Pulse Rate 65 Respiratory Rate 18 Blood Pressure 137/79 Pulse Oximetry 96 Oxygen Delivery Method Room Air BMI result Body Mass Index 54.0 Course Course Course Narrative: This is a rapid medical exam performed by Isabel Kearney PA-C. The patient is a 49-year-old male with a history of diabetes who presents from urgent care with the acute onset left eye pain and swelling. Swelling involves the upper lid, the patient has pain with extraocular eye movements to the right. On exam he has full range of motion with extraocular eye movements, there was no injection of the sclera, there was no discharge, objectively the upper lid is swollen. We will screen basic labs, he may require a contrast scan. The patient is stable and can return to the waiting room pending his full medical assessment. Medical Decision Making Lab Data 05/03/24 13:18 05/03/24 13:18 Labs: Lab Results 05/03/24 Range/Units 13:18 WBC 3.8 L (4.8-10.8) X10*3/uL RBC 4.30 L (4.60-5.80) X10*6/uL Hgb 13.2 L (14.0-18.0) g/dl Hct 38.8 L (42.0-52.0) % MCV 90.2 (80.0-98.0) fL MCH 30.7 (27.0-33.0) pg MCHC 34.0 (31.0-36.0) g/dl RDW 12.6 (11.0-16.0) % Plt Count 111 L D (160-400) X10*3/uL MPV 10.5 (9.4-12.4) fL Immature Gran % (Auto) 0.3 (0.0-0.4) % Neut % (Auto) 43.4 L (45-73) % Lymph % (Auto) 39.9 (20-40) % Ferry % (Auto) 12.0 H (2-11) % Eos % (Auto) 3.9 (0-4) % Baso % (Auto) 0.5 (0-2) % Lymph # (Auto) 1.5 (1.2-4.9) X10*3/uL Ferry # (Auto) 0.5 (0.1-1.2) X10*3/uL Eos # (Auto) 0.2 (0.0-0.4) X10*3/uL Baso # (Auto) 0.0 (0.0-0.2) X10*3/uL Abs Immat Gran (auto) 0.01 (0.00-0.03) X10*3/uL Absolute Neuts (auto) 1.7 L (2.0-8.3) x10*3/uL Absolute Nucleated RBC 0.000 (0.0-0.012) X10*3/uL Nucleated RBC % (auto) 0.0 (0.0-0.2) /100WBC Smear Tech's Comments VERIFIED Sodium 137 (135-145) mmol/L Potassium 4.3 (3.3-5.1) mmol/L Chloride 106 (96-108) mmol/L Carbon Dioxide 26 (22-29) mmol/L Anion Gap 9 L (12-20) BUN 7 L (9-16) mg/dL Creatinine 0.75 (0.5-1.4) mg/dL Estim Creat Clear Calc 168.5 Estimated GFR > 60 Random Glucose 98 (60-115) mg/dL Calcium 8.6 D (8.4-10.2) mg/dL Magnesium 1.9 (1.6-2.6) mg/dL Discharge Plan Discharge Clinical Impression: Eye swelling, left Patient Disposition: Left W/O Completing Treatment Prescriptions: No Action (DME) blood-glucose meter [FreeStyle Lite Meter] Kit See Rx Instructions .Route Qty: 1 0RF Rx Instructions: As directed (DME) FreeStyle Lite Strips Strip See Rx Instructions .Route Qty: 200 1RF Rx Instructions: Test blood sugar twice a day (DME) lancets [FreeStyle Lancets] 28 gauge misc See Rx Instructions .Route Qty: 200 1RF Rx Instructions: Test blood sugar twice a day amoxicillin-pot clavulanate 875-125 mg tablet 1 tab PO Q12H Qty: 14 0RF Discharge Date/Time: 05/03/24 18:34
[2024-05-03 13:27] LABS: Basophils Percent Auto 0.5 % (0-2); Eosinophils Absolute Auto 0.2 X10*3/uL (0.0-0.4); Eosinophils Percent Auto 3.9 % (0-4); Hematocrit 38.8 % (42.0-52.0); Hemoglobin 13.2 g/dl (14.0-18.0); Imm Gran Abs Auto 0.01 X10*3/uL (0.00-0.03); Imm Gran Pct Auto 0.3 % (0.0-0.4); Lymphocytes Absolute Auto 1.5 X10*3/uL (1.2-4.9); Lymphocytes Percent Auto 39.9 % (20-40); MANUAL DIFF FLAG SCAN; Mean Corpuscular Hemoglobin 30.7 pg (27.0-33.0); Mean Corpuscular Volume 90.2 fL (80.0-98.0); Mean Platelet Volume 10.5 fL (9.4-12.4); Monocytes Absolute Auto 0.5 X10*3/uL (0.1-1.2); Neutrophils Absolute Auto 1.7 x10*3/uL (2.0-8.3); Neutrophils Percent Auto 43.4 % (45-73); Platelet Count 111 X10*3/uL (160-400); Red Cell Distribution Width 12.6 % (11.0-16.0); SCAN SMEAR FLAG 1; White Blood Count 3.8 X10*3/uL (4.8-10.8)
[2024-05-03 13:36] LABS: Anion Gap 9 (12-20); Blood Urea Nitrogen 7 mg/dL (9-16); Calcium 8.6 mg/dL (8.4-10.2); Carbon Dioxide 26 mmol/L (22-29); Chloride 106 mmol/L (96-108); Creatinine Clr Calc Pharmacy 168.5; Estimated Glomerular Filt Rate > 60; Glucose Random 98 mg/dL (60-115); Magnesium 1.9 mg/dL (1.6-2.6); Potassium 4.3 mmol/L (3.3-5.1); Sodium 137 mmol/L (135-145)
[2024-05-03 13:59] LABS: SLIDE REVIEW VERIFIED
== END 2024-05-03 18:34 | disposition left against medical advice (07) ==
PROVIDERS: Physician Assistant Medical; Emergency Provider Emergency Medicine; PCP Nurse Practitioner Family
DX: H57.12 Ocular pain, left eye (principal); R42 Dizziness and giddiness; F43.9 Reaction to severe stress, unspecified; R22.0 Localized swelling, mass and lump, head
CPT/HCPCS: 36415; 80048; 83735; 85025; 99281; 99283

== ENCOUNTER 2024-11-17 15:37 | Outpatient (AMB) | payer OTHER, SELFPAY ==
[2024-11-17 15:44] VITALS: BP 124/88; PULSE 73; RESP 18; O2SAT 97; BMI 55.8
--- NOTE | 2024-11-17 15:44 | A.OFFPC_ITS ---
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 Accompanied by: Self / Same As Patient Allergies acetaminophen (From TYLENOL) Adverse Reaction (Mild, Verified 11/17/24 16:31) DIAPHORESIS Medication List - Last [facility] 11[facility]17/24 [facility] blood sugar diagnostic (FreeStyle Lite Strips) Test blood sugar twice a day blood-glucose meter (FreeStyle Lite Meter kit) As directed lancets (FreeStyle Lancets) Test blood sugar twice a day Tobacco use date assessed: 11/17/24 Dental Screening Dental Screen Date: 11/17/24 Did you have a dental visit in the last 12 months?: Yes Did you have a dental problem in the last 6 months where you did not have access to dental care?: No Was dental information given to patient?: Patient has dentist HPI Annual PE - see comments HPI Details History of Present Illness The patient is a 49-year-old male presenting for a physical examination. The patient has a history of diabetes mellitus, with a current A1c level of 5.6, indicating good glycemic control. He denies experiencing any chest pain, dys pnea, abdominal pain, hematochezia, constipation, diarrhea, neuropathy, or suicidal ideation. The patient is also noted to be morbidly obese. He reports having undergone an eye examination within the last year, emphasizing the importance of regular screenings. Health Maintenance - Colon cancer screening referral placed - Recent eye examination conducted with[facility] the last year -vaccination list given to pt Social History Review of Systems - Cardiovascular: Denies chest pain - Respiratory: Denies dyspnea - Gastrointestinal: Denies abdominal cory n, hematochezia, constipation, diarrhea - Neurological: Denies neuropathy - Psychiatric: Denies suicidal ideation Physical Exam General: Cooperative, healthy appearing, comfortable, no acute distress and well developed, morbidly obese Orientation: Patient oriented x3 Limitations: No limitations Head: Normal to inspection Ears: Hearing grossly normal bilaterally Nose: Normal external nose present Face and sinus: Normal facial exam Eyes: Appearance normal, both eyes and all related structures Neck: Normal visual inspection and Yes full ROM Respiratory: Normal respiratory effort and able to speak in complete sentences. Clear to auscultation bilaterally Cardiovascular: Regular rate and rhythm. Normal S1 and S2 GI: Normal to inspection. Soft to palpation and nontender : testicles without masses/lesions and no hernias appreciated Skin: No rashes or lesions noted Neuro: Patient oriented x3 Extremities: Normal to inspection, feet intact with positive sensation Results - Labs: A1c level at 5.6 Plan 1. Diabetes Mellitus The patient's diabetes mellitus is currently well-controlled with an A1c of 5.6. 2. Morbid Obesity The patient is noted to be morbidly obese, which requires ongoing management and monitoring. 3. Preventative Care: Colon Cancer Johanna umer A referral for colon cancer screening has been placed as part of the patient's preventative care. Discussion Notes Patient Instructions COUNT INCLUDES [facility] Social History Housing: House Patient Tobacco Use Status: Never used Tobacco e-Cigarette/Vaping Use: Never Used Second Hand Smoke Exposure: No service: No Current occupational status: employed Current occupation: [employer] Current occupational exposures/hazards: No Cognitive needs: No Hearing needs: No Vision needs: No Questionnaire PHQ-9 Over the last 2 weeks, how often have you been bothered by any of the following problems? 1. Little interest or pleasure in doing things: not at all 2. Feeling down, depressed, or hopeless: not at all 3. Trouble falling or staying asleep, or sleeping too much: not at all 4. Feeling tired or having little energy: not at all 5. Poor appetite or overeating: not at all 6. Feeling bad about yourself - or that you are a failure or have let yourself or your family down: not at all 7. Trouble concentrating on things, such as reading the newspaper or watching television: not at all 8. Moving or speaking so slowly that other people could have noticed. Or the opposite - being so fidgety or restless that you have been moving around a lot more than usual: not at all 9. Thoughts that you would be better off or of hurting yourself in some way: not at all Total score: 0 Depression Screening Interpretation: Negative Depression Screening Done: Yes 29099 - PHQ-9 Billing: Yes Source: Developed by Drs. Reggie Jones, Aretha Ramsey, Dick Jhaveri and colleagues, with an educational tino from [employer]. Thrive Questionnaire Date Thrive assessed: 11/17/24 I am a: Patient What is your living situation today?: I have a steady place to live Within the past 12 months, did the food you bought not last and you didn't have the money to get more?: I choose not to answer this question Within the past 12 months, did you worry whether your food would run out before you got money to buy more?: I choose not to answer this question Do you have trouble paying for medicines?: I choose not to answer this question Do you have trouble getting transportation to medical appointments?: I choose not to answer this question Do you have trouble paying your heating and electricity bill?: I choose not to answer this question Do you have trouble taking care of your child, family member or friend?: I choose not to answer this question Do you have trouble with day-to-day activities such as bathing, preparing meals, shopping, managing finances, etc.?: I choose not to answer this question Are you currently unemployed and looking for a job?: I choose not to answer this question Are you interested in more education?: I choose not to answer this question Please select the resources that you would like help with: None Currently or been in a relationship where the following occur: I choose not to answer THRIVE Score: 0 AUDIT C Alcohol Use Questionnaire (AUDIT-C) 1. How often do you have a drink containing alcohol?: 2-3 times a week 2. How many drinks containing alcohol do you have on a typical day when you are drinking?: 1 or 2 3. How often do you have six or more drinks on one occasion?: Never Total Score: 3 Score Reviewed/Action Taken: Yes KIMI-7 AMB Questionnaire KIMI-7 Date KIMI - 7 assessed: 11/17/24 Feeling nervous, anxious, or on edge: 0 = Not at all Not being able to stop or control worryin = Not at all Worrying too much about different things: 0 = Not at all Trouble relaxin = Not at all Being so restless that it is hard to sit still: 0 = Not at all Becoming easily annoyed or irritable: 0 = Not at all Feeling afraid as if something awful might happen: 0 = Not at all Total KIMI-7 score (0-4 normal; 5-9 mild; 10-14 moderate; 15-21 severe): 0 Source: Developed by Drs. Reggie Jones, Aretha Ramsey, Dick Jhaveri and colleagues, with an educational tino from [employer]. KIMI-7 Assessment Billing KIMI-7 Assessment Tool: KIMI-7 Assessment 05335 Physical exam (Primary Care) Vital Signs: Last Vital Signs Pulse 73 11/17/24 15:44 Resp 18 11/17/24 15:44 BP 124/88 11/17/24 15:44 Pulse Ox 97 11/17/24 15:44 Oxygen Delivery Method Room Air 11/17/24 15:44 BMI result Body Mass Index 55.8 Tobacco/Smoking Status: Tobacco use Status Tobacco use date assessed 11/17/24 11/17/24 15:52 Patient Tobacco Use Status Never used Tobacco 11/17/24 15:52 e-Cigarette/Vaping Use Never Used 11/17/24 15:52 PHQ-9: PHQ-9 Score PHQ-9: Total score 0 11/17/24 16:23 Depression Screening Interpretation: Negative Thrive Assessment: Date of Thrive Assessment Date Thrive assessed 11/17/24 11/17/24 15:52 Currently or been in a relationship where the following occur: I choose not to answer Results AMB Hemoglobin A1c AMB Hemoglobin A1c 5.6 % Last Edit by Maryann Antonio MA on 11/17/24 16:28 Immunizations pneumoc 20-caitlin conj-dip cr(PF) 0.5 mL IM syringe Performing Provider: DOM Naranjo [place] [facility] [place] [facility] Administered by: Oscar Chu CMA on 11/17/24 16:32 Dose Route Admin Location Dispensed Lot Number Expiration Date [facility] [place]NOTE 2] [employer] 0.5 mL IM Right Deltoid 0.5 mL [id number] 04/01/25 8808-8000-71 MELANI Godfrey/PFIZER Total Dispensed Waste 0.5 mL 0 % VIS Given Date VIS Provided VIS Publication Date 11/17/24 Single Vaccine 24 Eligibility Eligibility Date Funding Source Not [facility] Eligible 11/17/24 Private Results Reviewed Results Reviewed: Laboratory Last Values Hgb A1c (Clinic) 5.6 % (4.0-6.0) 11/17/24 16:10 Coding Level of Care Code Est Pt Level 3 (25739) Est Pt Prev Care 40-64y(38027) Diagnoses Diabetes E11.9 Encounter for routine adult physical exam with abnormal findings Z00.01 Screening for prostate cancer Z12.5 Screening for colon cancer Z12.11 Additional Codes KIMI-7 Assessment Billing - KIMI-7 Assessment Tool: KIMI-7 Assessment 39644 ([id number]) PHQ-9 - 64768 - PHQ-9 Billing: Yes ([id number]) Assessment & Plan Assessment & Plan (1) Diabetes: Code(s): E11.9 - Type 2 diabetes mellitus without complications Category: Medical (2) Encounter for routine adult physical exam with abnormal findings: Code(s): Z00.01 - Encounter for general adult medical examination with abnormal findings Category: Medical (3) Screening for prostate cancer: Code(s): Z12.5 - Encounter for screening for malignant neoplasm of prostate Category: Medical (4) Screening for colon cancer: Code(s): Z12.11 - Encounter for screening for malignant neoplasm of colon Category: Medical Plan . Orders: Orders Complete Blood Count Auto Diff Today E11.9 - Type 2 diabetes mellitus without complications, Z00.01 - Encounter for general adult medical examination with abnormal findings Comprehensive Ambrose. Panel Fast Today E11.9 - Type 2 diabetes mellitus without complications, Z00.01 - Encounter for general adult medical examination with abnormal findings UA CC w/rflx Micro + Cult Today E11.9 - Type 2 diabetes mellitus without complications, Z00.01 - Encounter for general adult medical examination with abnormal findings Lipid Panel Today E11.9 - Type 2 diabetes mellitus without complications, Z00.01 - Encounter for general adult medical examination with abnormal findings Pneumococcal 20 Immunization Today Z23 - Encounter for immunization AMB Hemoglobin A1c Today Z13.9 - Encounter for screening, unspecified TSH reflex Free T4 Today E11.9 - Type 2 diabetes mellitus without complica tions, Z00.01 - Encounter for general adult medical examination with abnormal findings Prostate Specific Antigen Scr Today Z12.5 - Encounter for screening for malignant neoplasm of prostate Microalbumin, Random (w Creat) Today E11.9 - Type 2 diabetes mellitus without complications Referrals Gastroenterology Referral Z12.11 - Encounter for screening for malignant neoplasm of colon
== END 2024-11-17 16:39 | disposition home or self-care (01) ==
LOC: HO.HMCC 15:38
PROVIDERS: PCP Nurse Practitioner Family; Visit Provider Nurse Practitioner Family
DX: Z00.00 Encounter for general adult medical examination without abnormal findings (principal); E11.9 Type 2 diabetes mellitus without complications; Z12.5 Encounter for screening for malignant neoplasm of prostate; Z12.11 Encounter for screening for malignant neoplasm of colon; Z13.9 Encounter for screening, unspecified; Z23 Encounter for immunization

== ENCOUNTER → 2024-11-17 15:37 | Outpatient (BNVA) | payer OTHER, SELFPAY | PROVIDERS: PCP Nurse Practitioner Family; Visit Provider Nurse Practitioner Family | DX: Z00.01 Encounter for general adult medical examination with abnormal findings (principal); E11.9 Type 2 diabetes mellitus without complications; E66.01 Morbid (severe) obesity due to excess calories; Z23 Encounter for immunization; Z68.43 Body mass index [BMI] 50.0-59.9, adult | CPT/HCPCS: 83036; 90471; 90677; 96127 ==